=== PATIENT | female | born 1995 | race Caucasian/White ===

== ENCOUNTER 2017-07-02 21:18 | Emergency (ER) | payer BC ==
[~2017-07-02] VITALS: Ht 165.1 cm; Wt 83.1 kg
[2017-07-02 21:59] VITALS: TEMP 37; Ht 165.1 cm; Wt 83.1 kg
[2017-07-02] MEDS ORDERED: KETOROLAC TROMETHAMINE 30 MG/ML VIAL IV STA (23:31)
[2017-07-02 23:44] LABS: BASO % 0.4 %; BASO ABS # 0.03 K/uL (0-0.2); EOS % 1.3 %; EOS ABS # 0.11 K/uL (0-0.5); HEMATOCRIT 38.6 % (37-47); HEMOGLOBIN 13.3 g/dL (12.0-16.0); IG# 0.02 K/uL (0.00-0.02); LYMPH % 24.8 %; LYMPH ABS # 2.08 K/uL (1.2-3.4); MEAN CELL VOLUME 84.6 fL (80-100); MEAN CORPUSCULAR HEMOGLOBIN 29.2 pg (25-34); MEAN CORPUSCULAR HGB CONC 34.5 g/dl (32-36); MEAN PLATELET VOLUME 10.7 fL (7.4-10.4); MONO % 9.9 %; MONO ABS # 0.83 K/uL (0.11-0.59); NEUT % 63.4 %; NEUT ABS # 5.31 K/uL (1.4-6.5); PLATELET COUNT 371 K/uL (130-400); RED CELL DISTRIBUTION WIDTH CV 14.5 % (11.5-14.5); WHITE BLOOD COUNT 8.38 K/uL (4.8-10.8)
[2017-07-02 23:45] VITALS: O2SAT 93
[2017-07-02 23:50] LABS: ALBUMIN 3.6 gm/dl (3.4-5.0); BLOOD UREA NITROGEN 8 mg/dl (7-18); CALCIUM 9.1 mg/dl (8.5-10.1); CARBON DIOXIDE 23 mmol/L (21-32); CREATININE 0.69 mg/dl (0.60-1.20); GLUCOSE 85 mg/dl (70-99); POTASSIUM 3.5 mmol/L (3.5-5.1); SODIUM 140 mmol/L (136-145)
[2017-07-02 23:54] LABS: ALKALINE PHOSPHATASE 57 U/L (45-117); ALT/SGPT 16 U/L (12-78); AST/SGOT 11 U/L (15-37); TOTAL PROTEIN 8.1 gm/dl (6.4-8.2)
--- NOTE | 2017-07-02 23:54 | EMERGENCY ROOM VISIT NOTE ---
History Report prepared by Jb: Reggie Bond Under the Supervision of: Dr. Uma Holbrook M.D. First contact with patient: 23:20 Chief Complaint: CHEST PAIN Stated Complaint: PAIN ON L SIDE OF CHEST HURTS WHEN BREATHING Nursing Triage Summary: c/o epigastric pain for 2 hrs. states " pain worse with a deep breath." History of Present Illness The patient is a 21 year old female who presents to the Emergency Room with complaints of constant, sharp, left-sided chest pain beginning 4.5 hours ago. The patient states breathing in worsens her symptoms. She reports she had a cough last week. The patient notes she takes oral control. She states she participated in the [employer] this weekend and has slept 13 hours since it ended. The patient reports she father 13 years ago from a blood clot, but had appendiceal cancer. She denies a history of smoking, shortness of breath, recent travel, fevers, and swelling to her legs. Source of History: patient Onset: 4.5 hours ago Position: chest (left) Quality: sharp Timing: constant Modifying Factors (Worsening): breathing (in) Associated Symptoms: + cough (last week), No fevers, No SOB Note: Pt takes oral control. Denies: recent travel, swelling to her legs Review of Systems See HPI for pertinent positives & negatives. A total of 10 systems reviewed and were otherwise negative. Past Medical & Surgical Medical Problems: (1) No Known Active Medical Problems Family History Blood clots FATHER Social History Smoking Status: Never Smoker Marital Status: single Occupation Status: [employer] student Current/Historical Medications Scheduled Control Pills ( Control Pills), 1 TAB PO DAILY Allergies Coded Allergies: Penicillins (Verified Allergy, Intermediate, RASH, 07/03/17) Physical Exam Vital Signs Date Time Temp Pulse Resp B/P (MAP) Pulse Ox O2 Delivery O2 Flow Rate FiO2 07/03/17 01:23 80 15 143/77 07/03/17 00:21 86 07/02/17 23:45 80 20 132/100 93 Room Air 07/02/17 21:59 37.0 109 18 148/79 98 Room Air Physical Exam Vital signs reviewed. General: Well-appearing 21 year old female, in no significant distress. HEENT: No scleral icterus, PERRLA, neck supple. Atraumatic. Cardiovascular: Regular rate and rhythm, no extra sounds. Pulmonary: Clear to auscultation bilaterally, normal work of breathing. Abdomen: Soft, nontender, nondistended, positive bowel sounds. Musculoskeletal: Atraumatic, no peripheral edema. Tenderness to palpation over the left costosternal margin. Neurologic: Patient awake alert and oriented x 3 Skin: Warm, dry, no rash Medical Decision & Procedures ER Provider Diagnostic Interpretation: Radiology results as stated below per my review and radiologist interpretation: Portable chest x-ray per my interpretation: No focal lung consolidation. No failure. No pneumothorax. CT CHEST with contrast: No evidence of PE. Lungs are clear. No pleural effusions. No adenopathy. Heart size is normal. Aorta is unremarkable. Radiologist: Rhett Lindsay MD Study ready at 0025 and initial results transmitted at 0106. Laboratory Results 07/02/17 23:05 Red Blood Count 4.56, Mean Corpuscular Volume 84.6, Mean Corpuscular Hemoglobin 29.2, Mean Corpuscular Hemoglobin Concent 34.5, Mean Platelet Volume 10.7, Neutrophils (%) (Auto) 63.4, Lymphocytes (%) (Auto) 24.8, Monocytes (%) (Auto) 9.9, Eosinophils (%) (Auto) 1.3, Basophils (%) (Auto) 0.4, Neutrophils # (Auto) 5.31, Lymphocytes # (Auto) 2.08, Monocytes # (Auto) 0.83, Eosinophils # (Auto) 0.11, Basophils # (Auto) 0.03 07/02/17 23:05 Test 07/02/17 23:05 07/02/17 23:41 White Blood Count 8.38 K/uL (4.8-10.8) Red Blood Count 4.56 M/uL (4.2-5.4) Hemoglobin 13.3 g/dL (12.0-16.0) Hematocrit 38.6 % (37-47) Mean Corpuscular Volume 84.6 fL (80-100) Mean Corpuscular Hemoglobin 29.2 pg (25-34) Mean Corpuscular Hemoglobin Concent 34.5 g/dl (32-36) Platelet Count 371 K/uL (130-400) Mean Platelet Volume 10.7 fL (7.4-10.4) Neutrophils (%) (Auto) 63.4 % Lymphocytes (%) (Auto) 24.8 % Monocytes (%) (Auto) 9.9 % Eosinophils (%) (Auto) 1.3 % Basophils (%) (Auto) 0.4 % Neutrophils # (Auto) 5.31 K/uL (1.4-6.5) Lymphocytes # (Auto) 2.08 K/uL (1.2-3.4) Monocytes # (Auto) 0.83 K/uL (0.11-0.59) Eosinophils # (Auto) 0.11 K/uL (0-0.5) Basophils # (Auto) 0.03 K/uL (0-0.2) RDW Standard Deviation 45.0 fL (36.4-46.3) RDW Coefficient of Variation 14.5 % (11.5-14.5) Immature Granulocyte % (Auto) 0.2 % Immature Granulocyte # (Auto) 0.02 K/uL (0.00-0.02) Anion Gap 10.0 mmol/L (3-11) Est Creatinine Clear Calc Drug Dose 137.3 ml/min Estimated GFR () 144.2 Estimated GFR (Non- 124.4 BUN/Creatinine Ratio 11.5 (10-20) Calcium Level 9.1 mg/dl (8.5-10.1) Total Bilirubin 0.5 mg/dl (0.2-1) Direct Bilirubin < 0.1 mg/dl (0-0.2) Aspartate Amino Transf (AST/SGOT) 11 U/L (15-37) Alanine Aminotransferase (ALT/SGPT) 16 U/L (12-78) Alkaline Phosphatase 57 U/L (45-117) Total Protein 8.1 gm/dl (6.4-8.2) Albumin 3.6 gm/dl (3.4-5.0) Bedside D-Dimer > 450 ng/mlFEU (0-450) Laboratory results per my review. Medications Administered Medications (Trade) Dose Ordered Sig/Kisha Route Start Time Stop Time Status Last Admin Dose Admin Ketorolac Tromethamine (Toradol Inj) 30 mg NOW STAT IV 07/02/17 23:31 07/02/17 23:34 DC 07/02/17 23:44 30 MG Sodium Chloride 500 ml @ 999 mls/hr Q31M STAT IV 07/03/17 00:01 07/03/17 00:31 DC 07/03/17 00:19 999 MLS/HR ECG Per My Interpretation Indication: chest pain Rate (beats per minute): 85 Rhythm: normal sinus Findings: no acute ischemic change, no ectopy, other (Normal intervals. Normal axis.) ED Course 2331: Past medical records reviewed. The patient was evaluated in room C12B. A complete history and physical examination was performed. Ordered Ketorolac Tromethamine 30mg IV 0001: Ordered Sodium Chloride 500 ml @ 999 mls/hr IV 0113: Upon reevaluation, the patient appeared to have improvement of her symptoms. I discussed findings with her. She verbalized agreement of the treatment plan. The patient was discharged home. Medical Decision DDx: Acute coronary syndrome, pulmonary embolus, aortic dissection, musculoskeletal pain, pneumonia, pleural effusion, pneumothorax This patient was evaluated and appeared to be in no significant distress. IV access was obtained and laboratory work was drawn. The patient was placed on the chicken stuffer and found to be in a sinus tachycardia. Chest x-ray was performed and is negative for focal lung consolidation or failure. Patient was given IV normal saline solution [address] scan of the chest was performed due to an elevated d-dimer. This study is negative for PE. Patient was medicated with Toradol 30 mg IV. I suspect she is suffering from an acute costochondritis. She was encouraged to follow-up with her primary care physician this week for reevaluation. She will continue ibuprofen as needed for pain. She will return to the ER for worsening of symptoms or any medical concerns. Medication Reconcilliation Current Medication List: was personally reviewed by me Blood Pressure Screening Patient's blood pressure: Elevated blood pressure Blood pressure disposition: Elevated BP felt to be situational Impression Primary Impression: Acute costochondritis Scribe Attestation The scribe's documentation has been prepared under my direction and personally reviewed by me in its entirety. I confirm that the note above accurately reflects all work, treatment, procedures, and medical decision making performed by me. Departure Information Dispostion Home / Self-Care Referrals [facility] Forms HOME CARE DOCUMENTATION FORM, IMPORTANT VISIT INFORMATION Patient Instructions ED Chest Pain Costochondritis, My [facility] Additional Instructions Diagnosis: Costochondritis Ibuprofen 600 mg every 6 hours as needed for pain with food. Follow up with your doctor this week for reevaluation. Return to the ED for worsening of symptoms or any medical concerns.
[2017-07-03] MEDS ORDERED: SODIUM CHLORIDE 0.9% 500ML 500 ML IV STA (00:01)
[2017-07-03] MEDS ORDERED: OPTIRAY 320 IV PRN (00:15)
[2017-07-03] MEDS ORDERED: BCPILLS PO (00:54)
[2017-07-03 01:23] VITALS: BP 143/77; PULSE 80
--- NOTE | 2017-07-03 07:16 | DIAGNOSTIC IMAGING REPORT ---
CHEST ONE VIEW PORTABLE CLINICAL HISTORY: Atypical chest pain and shortness of breath COMPARISON STUDY: No previous studies for comparison. FINDINGS: The cardiac and mediastinal contours are normal. There is no evidence of focal pulmonary consolidation. There is no evidence of failure. No pleural effusions are visualized.[ IMPRESSION: No active disease in the chest. Electronically signed by: Phil Esquivel M.D. 07/03/2017 7:15 AM Dictated Date/Time: 07/03/2017 7:15 AM
--- NOTE | 2017-07-03 08:04 | DIAGNOSTIC IMAGING REPORT ---
CHEST CTA for PULMONARY ARTERIES CT DOSE: 416.42 mGy.cm HISTORY: Left-sided chest pain. Elevated d-dimer. TECHNIQUE: Multiaxial CT images of the chest were performed following the intravenous administration of contrast to evaluate the pulmonary arteries. Maximal intensity projection images were also obtained. A dose lowering technique was utilized adhering to the principles of ALARA. COMPARISON STUDY: Chest 07/02/2017. FINDINGS: There is a normal caliber thoracic aorta with no evidence for dissection. There is no evidence for pulmonary embolus. No pleural effusions. No pneumothorax. The liver and spleen are unremarkable. No mediastinal or hilar lymphadenopathy. The central airways are patent. The lungs are clear. IMPRESSION: No evidence for pulmonary embolus. Electronically signed by: Casey Buck M.D. 07/03/2017 8:03 AM Dictated Date/Time: 07/03/2017 7:58 AM
== END 2017-07-03 01:25 | disposition home or self-care (01) ==
LOC: C.EDB 21:20 → C.EDC 07-03 01:25
DX: M94.0 Chondrocostal junction syndrome [Tietze] (principal); Z88.0 Allergy status to penicillin